=== PATIENT | male | born 1950 | race Caucasian/White ===

== ENCOUNTER 2020-05-21 21:33 | Emergency (ER) | payer MEDICARE, BC ==
[2020-05-21] MEDS: Acetaminophen 500 MG Tab PO ONE (22:34)
[2020-05-21] MEDS: Acetaminophen 500 MG Tab ONE (22:35)
[2020-05-21 22:56] LABS: ANION GAP 15.6 mmol/L (5-15)
[2020-05-21] MEDS: Dexamethasone 4 MG/ML SDV IVPUSH ONE (23:38)
[2020-05-21] MEDS: Dexamethasone 4 MG/ML SDV ONE (23:39)
--- NOTE | 2020-05-21 23:45 | EDM.PDOC ---
ED HPI GENERAL MEDICAL PROBLEM - General Chief Complaint: General Stated Complaint: COVID+ Time Seen by Provider: 05/21/20 21:45 Source of Information: Reports: Patient, Family (daughter) History Limitations: Reports: Altered Mental Status - History of Present Illness INITIAL COMMENTS - FREE TEXT/NARRATIVE: 70-year-old male presents to the emergency room with hypoxemia, tachypneic, shortness of breath, fever. Patient was tested for Covid on Sunday and confirmed his positive test Sunday. His daughter has been calling and observing him over the phone as she lives in [place]. She has noticed that since Sunday he is becoming increasingly confused and short of breath. She came down to see how he was doing today and noticed that he was increased in confusion, weakness and shortness of breath. She is brought him for further evaluation and work-up. Primary care is [facility] in [place]. Medical history, type 2 diabetes, hypertension, hyperlipidemia, stage III kidney disease, stroke 15 years ago. Onset: Gradual Onset Date: 05/19/20 Duration: Day(s):, Getting Worse Location: Reports: Generalized Quality: Reports: Ache Severity: Severe Improves with: Reports: None Worsens with: Reports: None Context: Reports: Sick Contact Associated Symptoms: Reports: Confusion, Fever/Chills, Shortness of Breath - Related Data Allergies Allergy/AdvReac Type Severity Reaction Status Date / Time No Known Drug Allergies Allergy Cannot Verified 05/21/20 21:42 Remember Home Meds: Home Meds Aspirin [Ecotrin EC] 81 mg PO DAILY 11/29/18 [History] Ciprofloxacin [Ciprofloxacin HCl] 500 mg PO BID 11/29/18 [History] Fenofibrate 160 mg PO DAILY 11/29/18 [History] Furosemide [Lasix] 40 mg PO DAILY 11/29/18 [History] Lisinopril 40 mg PO DAILY 11/29/18 [History] Nebivolol HCl [Bystolic] 10 mg PO DAILY 11/29/18 [History] Nystatin/Triamcinolone Crm [Mycolog Crm] 1 applic TOP BID 11/29/18 [History] Rosuvastatin Calcium [Crestor] 40 mg PO DAILY 11/29/18 [History] allopurinoL [Zyloprim] 300 mg PO DAILY 11/29/18 [History] amLODIPine [Norvasc] 5 mg PO DAILY 11/29/18 [History] glipiZIDE [Glipizide ER] 10 mg PO DAILY 11/29/18 [History] hydrALAZINE [Apresoline] 50 mg PO BID 11/29/18 [History] metFORMIN [Glucophage] 1,000 mg PO BIDMEALS 11/29/18 [History] Social & Family History - Tobacco Use Tobacco Use Status *Q: Never Tobacco User - Caffeine Use Caffeine Use: Reports: Soda - Recreational Drug Use Recreational Drug Use: No ED ROS GENERAL - Review of Systems Review Of Systems: See Below Constitutional: Reports: Fever, Night Sweats HEENT: Reports: No Symptoms Respiratory: Reports: Shortness of Breath, Cough Cardiovascular: Reports: Blood Pressure Problem, Edema, Lightheadedness Endocrine: Reports: High Glucose GI/Abdominal: Reports: Anorexia. Denies: Nausea, Vomiting : Reports: No Symptoms Musculoskeletal: Reports: No Symptoms Skin: Reports: No Symptoms Neurological: Reports: Confusion, Weakness Psychiatric: Reports: Agitation, Confusion Hematologic/Lymphatic: Reports: No Symptoms Immunologic: Reports: No Symptoms ED EXAM, GENERAL - Physical Exam Exam: See Below Free Text/Narrative:: Elderly gentleman who is toxic appearing, sweating, tachypneic. General Appearance: Alert, WD/WN, Mild Distress Ears: Hearing Grossly Normal Throat/Mouth: No Airway Compromise Head: Atraumatic, Normocephalic Neck: Normal Inspection. No: Lymphadenopathy (L), Lymphadenopathy (R) Respiratory/Chest: No Accessory Muscle Use, Chest Non-Tender, Decreased Breath Sounds. No: Accessory Muscle Use, Retractions, Splinting Cardiovascular: Regular Rate, Rhythm GI/Abdominal: Soft, Non-Tender, No Mass Back Exam: Normal Inspection Extremities: Pedal Edema (severe bilateral lower 3+ pitting) Neurological: Alert, Confused Psychiatric: Normal Affect, Normal Mood Skin Exam: Warm #1 Interpretation EKG Date: 05/21/20 Time: 22:26 Rhythm: NSR Rate (Beats/Min): 66 [place]: LAD-Left [place] Deviation QRS: Normal ST-T: Normal QT: Normal Comparison: NA - No Prior EKG EKG Interpretation Comments: Sinus rhythm with first-degree AV block [place] deviation Abnormal ECG Course - Vital Signs Last Recorded V/S: Last Vital Signs Temp 98.8 F 05/21/20 23:52 Pulse 54 L 05/21/20 23:52 Resp 26 H 05/21/20 23:52 BP 145/55 H 05/21/20 23:52 Pulse Ox 93 L 05/21/20 23:52 - Orders/Labs/Meds Orders: Active Orders 24 hr Category Date Time Status EKG Documentation Completion [RC] ASDIRECTED Care 05/21/20 22:05 Active CXR [Chest 1V Frontal] [CR] Stat Exams 05/21/20 22:05 Ordered Isolation [COMM] Routine Oth 05/21/20 22:06 Ordered Isolation [COMM] Routine Oth 05/21/20 22:07 Ordered EKG 12 Lead [EK] Urgent Ther 05/21/20 22:05 Ordered Labs: Laboratory Tests 05/21/20 05/21/20 05/21/20 Range/Units 22:20 22:20 22:20 WBC 3.29 L (5.00-10.00) 10^3/uL RBC 4.69 (4.50-6.00) 10^6/uL Hgb 14.1 (13.0-17.0) g/dL Hct 42.7 (40.0-52.0) % MCV 91.0 (82.0-92.0) fL MCH 30.1 (27.0-31.0) pg MCHC 33.0 (32.0-36.0) g/dL RDW 12.7 (11.5-14.5) % Plt Count 183 (150-400) 10^3/uL MPV 10.0 (7.4-10.4) fL Immature Gran % (Auto) 0.3 (0.0-5.0) % Neut % (Auto) 89.4 H (50.0-70.0) % Lymph % (Auto) 6.7 L (20.0-40.0) % [place] % (Auto) 3.6 (2.0-8.0) % Eos % (Auto) 0.0 L (1.0-3.0) % Baso % (Auto) 0.0 (0.0-1.0) % Neut # (Auto) 2.94 (2.50-7.00) 10^3/uL Lymph # (Auto) 0.22 L (1.00-4.00) 10^3/uL [place] # (Auto) 0.12 (0.10-0.80) 10^3/uL Eos # (Auto) 0.00 L (0.10-0.30) 10^3/uL Baso # (Auto) 0.00 (0.00-0.10) 10^3/uL Immature Gran # (Auto) 0.01 (0.00-0.50) 10^3/uL D-Dimer, Quantitative (<400) ng/mL Sodium 136 (136-145) mmol/L Potassium 4.5 (3.3-5.3) mmol/L Chloride 99 (98-115) mmol/L Carbon Dioxide 25.9 (21.0-32.0) mmol/L Anion Gap 15.6 H (5-15) mmol/L BUN 30 H (6-25) mg/dL Creatinine 1.39 H (0.51-1.17) mg/dL Est Cr Clr Drug Dosing 50.16 mL/min Estimated GFR (MDRD) 51 mL/min Glucose 118 H (75 - 99) mg/dL Lactic Acid 2.5 H (0.4-2.0) mmol/L Calcium 9.7 (8.7-10.3) mg/dL Total Bilirubin 0.5 (0.2-1.0) mg/dL AST 74 H (15-37) U/L ALT 40 (12-78) U/L Alkaline Phosphatase 48 (46-116) IU/L Total Protein 6.8 (6.4-8.2) g/dL Albumin 2.72 L (3.00-4.80) g/dL 05/21/20 Range/Units 22:20 WBC (5.00-10.00) 10^3/uL RBC (4.50-6.00) 10^6/uL Hgb (13.0-17.0) g/dL Hct (40.0-52.0) % MCV (82.0-92.0) fL MCH (27.0-31.0) pg MCHC (32.0-36.0) g/dL RDW (11.5-14.5) % Plt Count (150-400) 10^3/uL MPV (7.4-10.4) fL Immature Gran % (Auto) (0.0-5.0) % Neut % (Auto) (50.0-70.0) % Lymph % (Auto) (20.0-40.0) % [place] % (Auto) (2.0-8.0) % Eos % (Auto) (1.0-3.0) % Baso % (Auto) (0.0-1.0) % Neut # (Auto) (2.50-7.00) 10^3/uL Lymph # (Auto) (1.00-4.00) 10^3/uL [place] # (Auto) (0.10-0.80) 10^3/uL Eos # (Auto) (0.10-0.30) 10^3/uL Baso # (Auto) (0.00-0.10) 10^3/uL Immature Gran # (Auto) (0.00-0.50) 10^3/uL D-Dimer, Quantitative 2070 H (<400) ng/mL Sodium (136-145) mmol/L Potassium (3.3-5.3) mmol/L Chloride (98-115) mmol/L Carbon Dioxide (21.0-32.0) mmol/L Anion Gap (5-15) mmol/L BUN (6-25) mg/dL Creatinine (0.51-1.17) mg/dL Est Cr Clr Drug Dosing mL/min Estimated GFR (MDRD) mL/min Glucose (75 - 99) mg/dL Lactic Acid (0.4-2.0) mmol/L Calcium (8.7-10.3) mg/dL Total Bilirubin (0.2-1.0) mg/dL AST (15-37) U/L ALT (12-78) U/L Alkaline Phosphatase (46-116) IU/L Total Protein (6.4-8.2) g/dL Albumin (3.00-4.80) g/dL Meds: Medications Discontinued Medications Generic Name Dose Route Start Last Admin Trade Name Kimaniq PRN Reason Stop Dose Admin Acetaminophen Confirm 05/21/20 22:31 05/21/20 22:35 Tylenol Extra Strength Administered 05/21/20 22:32 Not Given Dose 1,000 mg .ROUTE .STK-MED ONE Acetaminophen 1,000 mg 05/21/20 22:33 05/21/20 22:34 Tylenol Extra Strength PO 05/21/20 22:34 1,000 mg ONETIME ONE Administration Dexamethasone Confirm 05/21/20 23:34 05/21/20 23:39 Decadron Administered 05/21/20 23:35 Not Given Dose 8 mg .ROUTE .STK-MED ONE Dexamethasone 6 mg 05/21/20 23:37 05/21/20 23:38 Decadron IVPUSH 05/21/20 23:38 6 mg ONETIME ONE Administration - Radiology Interpretation Free Text/Narrative:: 1 View chest x-ray Findings: Left perihilar and basilar nodular consolidation. Findings likely represent a pneumonia given the history. Minimal medial right basilar consolidation noted. Cardiomegaly. No bony abnormalities. Impression: Perihilar and basilar nodular consolidation Minimal medial right basilar consolidation Findings most likely represent pneumonia - Re-Assessments/Exams Free Text/Narrative Re-Assessment/Exam: 05/21/20 23:50 Patient remains confused with mild agitation. His temperature has improved with the 1000 mg of Tylenol current temp is 101.7. Departure - Departure Time of Disposition: 00:30 Disposition: DC/Tfer to [facility] Condition: Poor Clinical Impression: Hypoxic, Tachypnea, Lab test positive for detection of COVID-19 virus - Discharge Information Forms: ED Department Discharge Sepsis Event Note (ED) - Evaluation Sepsis Screening Result: Possible Severe Sepsis Risk - Focused Exam Vital Signs: Vital Signs Temp Temp Pulse Resp BP Pulse Ox 05/21/20 23:52 98.8 F 54 L 26 H 145/55 H 93 L 05/21/20 23:39 54 L 137/52 L 93 L 05/21/20 23:09 101.7 F H 59 L 30 H 169/65 H 92 L 05/21/20 23:04 101.7 F H 05/21/20 22:35 60 32 H 167/65 H 91 L 05/21/20 22:34 102.9 F H 05/21/20 21:58 68 150/55 H 93 L 05/21/20 21:52 102.9 F H 85 34 H 165/60 H 87 L 05/21/20 21:40 147/70 H 91 L - My Orders Last 24 Hours: My Active Orders 05/21/20 22:05 EKG Documentation Completion [RC] ASDIRECTED CXR [Chest 1V Frontal] [CR] Stat EKG 12 Lead [EK] Urgent 05/21/20 22:06 Isolation [COMM] Routine 05/21/20 22:07 Isolation [COMM] Routine - Assessment/Plan Last 24 Hours: My Active Orders 05/21/20 22:05 EKG Documentation Completion [RC] ASDIRECTED CXR [Chest 1V Frontal] [CR] Stat EKG 12 Lead [EK] Urgent 05/21/20 22:06 Isolation [COMM] Routine 05/21/20 22:07 Isolation [COMM] Routine Assessment:: 1. Hypoxic 2. Tachypneic 3. Covid positive Plan: 1. Discussion with the daughter and we elected to transfer the patient for definitive care for his confusion secondary to his hypoxia, fever, respiratory distress and Covid positive findings. Patient had an IV started and was given 6 mg of dexamethasone. 1000 mg of Tylenol orally was given for his fever. Will be transferred to [address] for medical management.
--- NOTE | 2020-05-22 07:12 | CR ---
[id number] RAD/RAD Chest Portable EXAM: RAD Chest Portable INDICATION: COVID POSITIVE COMPARISON: None. DISCUSSION: Patchy areas of parenchymal opacification in both lungs most prominent in the left lung base. Findings are consistent with pneumonia, including sequela of Covid 19. No pleural effusion or pneumothorax. IMPRESSION: As above. Guru Couch MD 05/22/20 0711 Thank you for allowing us to participate in the care of your patient.
== END 2020-05-22 00:40 | disposition critical access hospital (66) ==
LOC: KA.ED 21:33
DX: U07.1 COVID-19 (principal); R09.02 Hypoxemia; R06.82 Tachypnea, not elsewhere classified; Z79.82 Long term (current) use of aspirin; Z79.899 Other long term (current) drug therapy
CPT/HCPCS: 36415; 71045; 80053; 83605; 85025; 85379; 87804; 93005; 96374; 99284; 99285-25; A9270-GY; J1100

== ENCOUNTER 2023-04-28 16:10 | Emergency (ER) | payer MEDICARE, BC ==
[2023-04-28 16:50] LABS: BASOPHILS ABSOLUTE AUTO 0.04 10^3/uL (0.00-0.10); BASOPHILS PERCENT AUTO 0.6 % (0.0-1.0); EOSINOPHILS ABSOLUTE AUTO 0.38 10^3/uL (0.10-0.30); EOSINOPHILS PERCENT AUTO 5.6 % (1.0-3.0); HEMATOCRIT 36.1 % (40.0-52.0); HEMOGLOBIN 11.7 g/dL (13.0-17.0); LYMPHOCYTES ABSOLUTE AUTO 0.78 10^3/uL (1.00-4.00); LYMPHOCYTES PERCENT AUTO 11.5 % (20.0-40.0); MEAN CORPUSCULAR HEMOGLOBIN 30.7 pg (27.0-31.0); MEAN CORPUSCULAR HGB CONC 32.4 g/dL (32.0-36.0); MEAN CORPUSCULAR VOLUME 94.8 fL (82.0-92.0); MEAN PLATELET VOLUME 9.1 fL (7.4-10.4); MONOCYTES ABSOLUTE AUTO 0.53 10^3/uL (0.10-0.80); MONOCYTES PERCENT AUTO 7.8 % (2.0-8.0); NEUTROPHILS ABSOLUTE AUTO 5.03 10^3/uL (2.50-7.00); NEUTROPHILS PERCENT AUTO 74.5 % (50.0-70.0); PLATELET COUNT,PLT 227 10^3/uL (150-400); RED BLOOD CELL COUNT 3.81 10^6/uL (4.50-6.00); RED CELL DISTRIBUTION WIDTH 12.2 % (11.5-14.5); WHITE BLOOD CELL COUNT,WBC 6.76 10^3/uL (5.00-10.00)
[2023-04-28 17:07] LABS: ALBUMIN 3.53 g/dL (3.40-5.00); ANION GAP 11.7 mmol/L (5-15); BILIRUBIN TOTAL 0.4 mg/dL (0.2-1.0); CALCIUM 9.2 mg/dL (8.7-10.3); CREATININE 1.4 mg/dL (0.51-1.17); EST CRCL DRUG DOSING (CG) 46.14 mL/min; POTASSIUM,K 3.7 mmol/L (3.5-5.1); PROTEIN TOTAL,TP 6.3 g/dL (6.4-8.2)
[2023-04-28] MEDS ORDERED: Lidocaine 2% with EPINEPHrine 1:100,000 20 ML MDV INJECT ONE (17:28)
[2023-04-28] MEDS ORDERED: cefTRIAXone 1 GM Vial IVPUSH ONE (18:19)
[2023-04-28] MEDS ORDERED: Diphtheria,Pertussis(Acell),Tetanus Vaccine 0.5 ML Syringe IM ONE (18:19)
== END 2023-04-28 20:17 | disposition home or self-care (01) ==
LOC: KA.ED 16:10
DX: S81.811A Laceration without foreign body, right lower leg, initial encounter (principal); F03.90 Unspecified dementia, unspecified severity, without behavioral disturbance, psychotic disturbance, mood disturbance, and anxiety; R00.1 Bradycardia, unspecified; I12.9 Hypertensive chronic kidney disease with stage 1 through stage 4 chronic kidney disease, or unspecified chronic kidney disease; N18.2 Chronic kidney disease, stage 2 (mild); E11.22 Type 2 diabetes mellitus with diabetic chronic kidney disease; Z79.82 Long term (current) use of aspirin; Z79.899 Other long term (current) drug therapy; W20.8XXA Other cause of strike by thrown, projected or falling object, initial encounter
CPT/HCPCS: 12004; 12034; 71045; 73590-RT; 80053; 83880; 84484; 85025; 90471; 90715; 93005; 93010; 96374; 99284; 99284-25; J0696; J3490

== ENCOUNTER 2024-11-18 11:27 | Emergency (ER) | payer MEDICARE, BC ==
[2024-11-18 11:53] LABS: BASOPHILS ABSOLUTE AUTO 0.01 10^3/uL (0.00-0.10); BASOPHILS PERCENT AUTO 0.2 % (0.0-1.0); EOSINOPHILS ABSOLUTE AUTO 0.09 10^3/uL (0.10-0.30); EOSINOPHILS PERCENT AUTO 1.5 % (1.0-3.0); HEMOGLOBIN 12.1 g/dL (13.0-17.0); LYMPHOCYTES ABSOLUTE AUTO 0.53 10^3/uL (1.00-4.00); MEAN CORPUSCULAR HGB CONC 31.8 g/dL (32.0-36.0); MEAN CORPUSCULAR VOLUME 91.1 fL (82.0-92.0); MEAN PLATELET VOLUME 8.6 fL (7.4-10.4); MONOCYTES PERCENT AUTO 6.8 % (2.0-8.0); NEUTROPHILS ABSOLUTE AUTO 4.87 10^3/uL (2.50-7.00); NEUTROPHILS PERCENT AUTO 82.5 % (50.0-70.0); PLATELET COUNT,PLT 184 10^3/uL (150-400); RED BLOOD CELL COUNT 4.17 10^6/uL (4.50-6.00); RED CELL DISTRIBUTION WIDTH 14.4 % (11.5-14.5)
[2024-11-18 12:10] LABS: ALANINE AMINOTRANSFERASE,ALT 15 U/L (14-63); ALBUMIN 3.13 g/dL (3.40-5.00); ALKALINE PHOSPHATASE 74 U/L (46-116); ANION GAP 8.5 mmol/L (5-15); ASPARTATE AMNIOTRANSFERASE,AST 15 U/L (15-37); BILIRUBIN TOTAL 0.7 mg/dL (0.2-1.0); BLOOD UREA NITROGEN,BUN 19 mg/dL (7-18); CALCIUM 9.1 mg/dL (8.7-10.3); CARBON DIOXIDE,CO2 30.6 mmol/L (21.0-32.0); CHLORIDE,CL 105 mmol/L (98-107); CREATININE 1.12 mg/dL (0.51-1.17); GLUCOSE RANDOM 187 mg/dL (70-140); POTASSIUM,K 4.1 mmol/L (3.5-5.1); SODIUM,NA 140 mmol/L (136-145)
[2024-11-18 12:11] LABS: C-REACTIVE PROTEIN < 0.50 mg/dL (0.00-0.50); ESTIMATED GFR 69 mL/min (>=60)
[2024-11-18] MEDS: Sodium Chloride 0.9% 50 ML IV SCH (12:36)
[2024-11-18] MEDS: Iopamidol 755 Mg/ML 100 ML Bottle IV ONE (12:36)
[2024-11-18 12:54] LABS: APPEARANCE,URINE CLEAR (CLEAR); BILIRUBIN,URINE NEGATIVE (NEGATIVE); COLOR,URINE YELLOW (YELLOW); GLUCOSE,URINE 100 mg/dL (NEGATIVE); KETONES,URINE NEGATIVE (NEGATIVE); LEUKOCYTE ESTERASE,URINE NEGATIVE (NEGATIVE); NITRITE,URINE NEGATIVE (NEGATIVE); OCCULT BLOOD,URINE NEGATIVE (NEGATIVE); PH,URINE 6.5 (5.0-9.0); PROTEIN,URINE >=300 mg/dL (NEGATIVE)
[2024-11-18 13:03] LABS: BACTERIA,URINE OCCASIONAL /HPF (NONE TO FEW); EPITHELIAL CELLS,URINE RARE /LPF; RBC,URINE 0-5 /HPF (0-5); WBC,URINE 0-5 /HPF (0-5)
== END 2024-11-18 13:27 | disposition home or self-care (01) ==
LOC: KA.ED 11:27
DX: K40.21 Bilateral inguinal hernia, without obstruction or gangrene, recurrent (principal); Z79.82 Long term (current) use of aspirin; Z79.899 Other long term (current) drug therapy
CPT/HCPCS: 74177; 80053; 81001; 85025; 86140; 99284; Q9967